=== PATIENT | female | born 2000 | race Two or more races ===

== ENCOUNTER 2022-09-03 10:14 | Emergency (ER) | payer OTHER ==
[~2022-09-03] VITALS: Ht 152.4 cm; Wt 52.2 kg
[2022-09-03 11:14] VITALS: BP 122/84
[2022-09-03 11:52] LABS: Basophils # (auto) 0 10 ^3/uL (0-0.2); Basophils % (auto) 0.8 % (0.0-2.0); Eosinophils # (auto) 0.1 10 ^3/uL (0-0.8); Eosinophils % (auto) 2.1 % (0.0-7.0); Hematocrit 35.7 % (36.0-46.0); Hemoglobin 12.2 g/dL (12.2-16.2); Lymphocytes # (auto) 1.2 10 ^3/uL (0.4-5.4); Lymphocytes % (auto) 26.7 % (10.0-50.0); Mean Corpuscular Hemoglobin 30.2 pg (28.0-32.0); Mean Corpuscular Hgb Conc. 34.1 g/dL (32.0-36.0); Mean Corpuscular Volume 88.5 fL (80.0-100.0); Monocytes # (auto) 0.3 10 ^3/uL (0-1.3); Monocytes % (auto) 5.9 % (0.0-12.0); Neutrophils # (auto) 2.9 10 ^3/uL (1.6-8.6); Neutrophils % (auto) 64.5 % (37.0-80.0); Nucleated Red Blood Cells % 0.1 %; Red Blood Cells 4.04 10^6/uL (4.0-5.20); Red Cell Distribution Width 12.5 % (11.8-14.3); White Blood Cell 4.5 10^3/uL (4.4-10.8)
[2022-09-03 12:02] LABS: Albumin 3.6 g/dL (3.4-5.0); Calcium 8.9 mg/dL (8.5-10.1); Potassium 3.8 mmol/L (3.5-5.1)
[2022-09-03 12:05] LABS: Bilirubin, Total 0.5 mg/dL (0.2-1.0)
== END 2022-09-03 13:36 | disposition home or self-care (01) ==
LOC: ER 10:14
DX: O20.0 Threatened abortion (principal); Z3A.12 12 weeks gestation of pregnancy
CPT/HCPCS: 36415; 76801; 80053; 83690; 84702; 85025; 86850; 86900; 86901

== ENCOUNTER 2023-04-27 19:49 | Emergency (ER) | payer MEDICAID, OTHER ==
[~2023-04-27] VITALS: Ht 152.4 cm; Wt 60.1 kg
[2023-04-27] MEDS ORDERED: BACIOIN15 TOP (20:48)
[2023-04-27] MEDS ORDERED: CEPH250C PO (20:48)
[2023-04-27] MEDS ORDERED: CEPHALEXIN 250 MG CAP PO ONE (21:00)
[2023-04-27 21:08] VITALS: BP 106/64; PULSE 82; RESP 16; TEMP 98.4; O2SAT 98
== END 2023-04-27 21:09 | disposition home or self-care (01) ==
LOC: ER 19:49
DX: L08.9 Local infection of the skin and subcutaneous tissue, unspecified (principal)